=== PATIENT | male | born 1940 | race Caucasian/White ===

== ENCOUNTER → 2017-06-16 16:46 | Outpatient (CLI) | payer MEDICARE, OTHER ==
[2016-07-02 13:24] VITALS: BMI 34.9
[~2017-06-16 16:46] MED LIST: ALEVE220 MG PO; ANTIVERT25 MG PO; BAYER CHEWABLE81 MG PO; BRILINTA90 MG PO; COLACE100 MG PO; COREG6.25 MG PO; COZAAR50 MG PO; DHEA25 M1 PO; FERREX 150 PLUS1 CAP PO; FERROUS SULFAT325 MG PO; FLOMAX0.4 MG PO; HYDROCODON-ACE1 EAC7 PO; K-DUR20 MEQ PO; LASIX40 MG PO; LISINOPRIL10 MG PO; MAXALT10 MG PO; MIRALAX17 GM PO; PLAVIX75 MG PO; PRAVACHOL20 MG PO; PRAVACHOL40 MG PO; PRINIVIL20 MG PO; PROTONIX20 MG PO; PROTONIX40 MG PO; ROBAXIN500 MG PO; ZOFRAN4 MG PO; [UNRECOGNIZED DRUG - REMARK] PO
[2017-06-16 17:11] LABS: BASOPHILS 0.6 % (0-2); EOSINOPHILS 2.8 % (0-7); HEMATOCRIT 34.4 % (42.0-54.0); HEMOGLOBIN 10.1 g/dL (13.5-17.5); IMMATURE GRANULOCYTES 0.2 % (0-5); MCHC 29.4 g/dL (31.0-37.0); MCV 67.5 fL (80.0-100.0); MEAN PLATELET VOLUME 10.2 fL (7.4-10.4); MONOCYTES 10.9 % (2-11); NEUTROPHILS 55.5 % (40-80); PLATELET COUNT 242 10x3/uL (130-400); RDW 19.7 % (11.5-14.5); WBC 5.4 10x3/uL (4.8-10.8)
[2017-06-16 17:15] LABS: MCH 19.8 pg (26.0-34.0)
[2017-06-16 17:21] LABS: CALC OSMOLALITY 284 mosm/kg (275-300); CALCIUM 8.9 mg/dL (8.5-10.1); CARBON DIOXIDE 25.6 mmol/L (21.0-32.0); CHLORIDE - SERUM 105 mmol/L (98-107); GLUCOSE 93 mg/dL (74-106); POTASSIUM - SERUM 4.8 mmol/L (3.5-5.1); SODIUM 140 mmol/L (136-145); UREA NITROGEN 30 mg/dL (7-18); eGFR NON AFRICAN AMERICAN 77 mL/min (90-120)
== END | disposition home or self-care (01) ==
LOC: D.LABREF 16:46
PROVIDERS: Internal Medicine Cardiovascular Disease
DX: I10 Essential (primary) hypertension (principal)

== ENCOUNTER 2017-10-26 11:42 | Outpatient (CLI) | payer MEDICARE, OTHER ==
[~2017-10-26] VITALS: Ht 180.3 cm; Wt 111.4 kg
--- NOTE | ~2017-10-26 | HEMODYNAMI ---
PATIENT:JAQUELINE BANUELOS MEDICAL RECORD: [id number] : 44 LOCATION:[facility] ADMISSION DATE: 10/26/17 Generatedon:10/26/201714:36 Patient name: JAQUELINE BANUELOS Patient #: [id number] SSN: [id number] : 1940 Date of study: 10/26/2017 Page: Of Hemodynamic Procedure Report Patient Data Patient Demographics Procedure consent was obtained First Name: JAQUELINE Gender: Male Last Name: VIN : 1940 Patient #: [id number] Age: 77 year(s) Race: SSN: [id number] Additional ID: [id number] Contact details [address]: [address] [place] [address] State: [place] City: [place] Zip code: [address] Past Medical History Allergies: No known allergies Admission Admission Data Admission Date: 10/26/2017 Admission Time: 11:42 Admit Source: Other Lab Results Lab Result Date: 10/26/2017 Lab Result Time: 0:00 Biochemistry Name Units Result Min Max BUN mg/dl 23 --(----)-* 7 18 Creatinine mg/dl 1.2 --(---*)-- 0.6 1.3 CBC Name Units Result Min Max Hematocrit % 32.9 *-(----)-- 42 54 Hemoglobin g/dl 9.4 *-(----)-- 13.5 17.5 Procedure Procedure Types Cath Procedure Diagnostic Procedure LHC Coronaries w/Grafts Aortic Root Angiography Peripheral Cath Diagnostic Procedure Abd/Extremity Aortagram Procedure Description Procedure Date Procedure Date: 10/26/2017 Procedure Start Time: 14:06 Procedure End Time: 14:35 Procedure Staff Name Function Jassi Pederson MD Performing Physician Jonha Mckeon RN Nurse Michelle Flores RT Scrub Len Kapoor RT Monitor Julius Bauer RT Monitor Procedure Data Cath Procedure Fluoroscopy Diagnostic fluoroscopy Total fluoroscopy Time: 9.5 time: 9.5 min min Diagnostic fluoroscopy Total fluoroscopy dose: 932 dose: 932 mGy mGy Contrast Material Contrast Material Type Amount (ml) Isovue 300 100 Entry Location Entry Primary Successful Side Size Upsize Upsize Entry Closure Succes sful Closure Location (Fr) 1 (Fr) 2 (Fr) Remarks Device Remarks Femoral Left 5 Fr Exoseal artery Estimated blood loss: 10 ml Diagnostic catheters Device Type Used For End Catheter Placement MULTIPACK JL 4.0 5Fr Procedure catheter DIAGNOSTIC AR 1 MOD 5Fr Procedure catheter ([id number]) DIAGNOSTIC IM 5Fr Procedure catheter ([id number]) MULTIPACK Pigtail 5 Fr Procedure catheter Procedure Complications No complications Procedure Medications Medication Administration Route Dosage Oxygen NC 2 l/min Lidocaine 2% added to field 20 Heparin Flush Bag added to field 2 bags (1000units/500ml NS) 0.9% NaCl I.V. 100 ml/hr Versed I.V. 2 mg Fentanyl I.V. 100 mcg Versed I.V. 1 mg Fentanyl I.V. 50 mcg Versed I.V. 1 mg Fentanyl I.V. 50 mcg Versed I.V. 1 mg Versed I.V. 1 mg Hemodynamics Rest HGB: 9.4 (g/dl) Heart Rate: 82 (bpm) Snapshots Pre Cath Intra NCS Post Cath Vital Signs Time Heart Resp SPO2 etCO2 NIBP (mmHg) Rhythm Pain Sedation Rate (ipm) (%) (mmHg) Status Level (bpm) 13:49:29 79 21 98 0 139/74(101) NSR 0 (11) 10(A) , No pain 13:54:20 77 21 97 0 140/73(103) NSR 0 (11) 10(A) , No pain 13:59:03 78 20 99 32.9 131/77(96) NSR 0 (11) 10(A) , No pain 14:03:47 82 25 99 32.9 128/75(95) NSR 0 (11) 10(A) , No pain 14:08:30 91 14 94 10.4 129/78(108) NSR 0 (11) 10(A) , No pain 14:13:11 89 12 93 0 107/70(97) NSR 0 (11) 9(A) , No pain 14:17:51 96 14 94 29.9 123/73(104) NSR 0 (11) 9(A) , No pain 14:22:36 87 15 95 0 107/62(80) NSR 0 (11) 9(A) , No pain 14:27:19 92 14 94 28.4 122/61(98) NSR 0 (11) 10(A) , No pain 14:32:03 95 15 97 0 132/74(107) NSR 0 (11) 10(A) , No pain Medications Time Medication Route Dose Verified Delivered Reason Notes Effe ctiveness by by 14:03:01 Oxygen NC 2 Jassi Buffie used for l/min Bg Mckeon RN procedure 14:03:15 Lidocaine 2% added 20ml Jassi Jassi for local to vial Bg Pederson MD anesthetic field 14:03:22 Heparin Flush added 2 Jassi Jassi used for Bag to bags Bg Pederson MD procedure (1000units/500ml field NS) 14:03:40 0.9% NaCl I.V. 100 Jassi Buffie Per ml/hr Bg Mckeon RN physician 14:04:05 Fentanyl I.V. 100 Jassi Buffie for mcg Bg Mckeon RN sedation 14:04:58 Versed I.V. 2 mg Jassi Buffie for Bg Mckeon RN sedation 14:08:58 Versed I.V. 1 mg Jassi Buffie for Bg Mckeon RN sedation 14:09:03 Fentanyl I.V. 50 Jassi Buffie for mcg Bg Mckeon RN sedation 14:13:50 Versed I.V. 1 mg Jassi Buffie for Bg Mckeon RN sedation 14:13:54 Fentanyl I.V. 50 Jassi Buffie for mcg Bg Mckeon RN sedation 14:17:13 Versed I.V. 1 mg Jassi Buffie for Bg Mckeon RN sedation 14:29:52 Versed I.V. 1 mg Jassi Buffie for Bg Mckeon RN sedation Procedure Log Time Note 13:19:51 Informed consent obtained and on chart 13:19:54 Admit Source: Other 13:20:07 Diagnostic Cath status Elective 13:20:09 Time tracking: Regular hours 13:20:13 Plan of Care:Hemodynamics will remain stable., Cardiac rhythm will remain stable., Comfort level will be maintained., Respiratory function will remain adequate., Patient/ family verbilizes understanding of procedure., Procedure tolerated without complication., Recovers from procedure without complications.. 13:21:51 H&P Date Dictated: 10/20/2017 Within 30 days and on chart., H&P Addendum completed by physician on day of procedure. (MUST COMPLETE FOR ALL OUTPATIENTS). 13:48:26 Patient received from Pre/Post Procedure Room to CCL 1 Alert and oriented. Tansferred to table in Supine position. 13:48:28 Warm blankets applied, and norah hugger turned on for patient comfort. 13:48:29 Correct patient and procedure confirmed by team. 13:48:30 ECG and BP/O2 sat monitors applied to patient. 13:48:31 Vital chart was started 13:48:32 Baseline sample Acquired. 13:48:35 Rhythm: sinus rhythm 13:48:38 Full Disclosure recording started 13:48:40 Pre-procedure instructions explained to patient. 13:48:40 Pre-op teaching completed and patient verbalized understanding. 13:48:42 Family in waiting room. 13:48:46 Patient NPO since Breakfast. 13:48:53 Patient allergic to No known allergies 13:48:57 Is the patient allergic to Iodine/contrast media? No. 13:48:59 Is patient on blood thinner?No 13:49:02 Patient diabetic? No. 13:49:05 ----Pre-sedation anethsthesia assessment.---- 13:49:08 Previous problem with sedation/anesthesia? No ? 13:49:17 Snore? Yes 13:49:19 Sleep apnea? Yes 13:49:20 Deviated septum? No 13:49:21 Opens mouth fully? Yes 13:49:23 Sticks out tongue? Yes 13:49:26 Airway obstruction? No ? 13:49:35 Dentures? Yes IN TIGHT 13:49:52 Pre procedure: left dorsailis pedis pulse Doppler 13:50:00 Patient pain scale 0/10 ?. 13:50:15 IV patent on arrival in left hand with 0.9% NaCl at [facility]. 13:59:37 Lab Result : BUN 23 mg/dl 13:59:37 Lab Result : Creatinine 1.2 mg/dl 13:59:37 Lab Result : Hemoglobin 9.4 g/dl 13:59:37 Lab Result : Hematocrit 32.9 % 13:59:42 Lab results completed and on chart. 13:59:49 Left groin area was prepped with chlora-prep and draped in sterile fashion 13:59:52 Alarms reviewed by R. N. 13:59:53 Sharps counted by scrub and verified by R.N. 14:01:03 Physician arrived 14:01:03 --------ALL STOP TIME OUT------ 14:01:05 Final Timeout: patient, procedure, and site verified with staff and physician. All members of the team are in agreement. 14:01:11 Left groin site verified by team. 14:01:15 Physical assessment completed. ASA score P 2 - A patient with mild systemic disease as per Jassi Pederson MD. 14:01:20 Sedation plan: IV Moderate Sedation Medication:Versed, Fentanyl 14::58 Use device set Femoral Dx 14:01:59 ACIST Syringe (23902) opened to sterile field. 14:02:01 Bag Decanter (2002S) opened to sterile field. 14:02:05 Medline Cath Pack ([id number]) opened to sterile field. 14:02:10 SHEATH 5FR Grethel (AUD729) opened to sterile field. 14:02:11 DIAGNOSTIC WIRE .035 260cm J wire (998347) opened to sterile field. 14:02:13 ACIST Hand Control (53322) opened to sterile field. 14:02:14 ACIST Manifold (08861) opened to sterile field. 14:02:20 DIAGNOSTIC Multipack 5Fr catheter set ([id number]) opened to sterile field. 14:03:01 Oxygen 2 l/min NC was administered by Jonah Mckeon RN; used for procedure; 14:03:15 Lidocaine 2% 20ml vial added to field was administered by Jassi Pederson MD; for local anesthetic; 14:03:22 Heparin Flush Bag (1000units/500ml NS) 2 bags added to field was administered by Jassi Pederson MD; used for procedure; 14:03:40 0.9% NaCl 100 ml/hr I.V. was administered by Jonah Mckeon RN; Per physician; 14:04:05 Fentanyl 100 mcg I.V. was administered by Jonah Mckeon RN; for sedation; ::58 Versed 2 mg I.V. was administered by Jonah Mckeon RN; for sedation; 14:05:58 Procedure started. 14:06:05 Local anesthetic to left femerol artery with Lidocaine 2% by Jassi Pederson MD.INITIAL ACCESS ONLY 14:08:58 Versed 1 mg I.V. was administered by Jonah Mckeon RN; for sedation; 14:09:03 Fentanyl 50 mcg I.V. was administered by Jonah Mckeon RN; for sedation; 14:13:50 Versed 1 mg I.V. was administered by Jonah Mckeon RN; for sedation; 14:13:54 Fentanyl 50 mcg I.V. was administered by Jonah Mckeon RN; for sedation; 14:15:05 A 5 Fr sheath was inserted into the Left Femoral artery 14:16:49 WHOLEY 300cm 0.035 wire ([id number]) opened to sterile field. 14:17:09 A MULTIPACK JL 4.0 5Fr catheter was advanced over the wire and used for Procedure. 14:17:13 Versed 1 mg I.V. was administered by Joanh Mckeon RN; for sedation; 14:18:31 LCA angiography performed. 14:18:58 Catheter removed. 14:19:21 A DIAGNOSTIC AR 1 MOD 5Fr catheter ([id number]) was advanced over the wire and used for Procedure. 14:20:19 SVG to RCA angiography performed. 14:21:22 SVG to OM angiography performed. 14:21:34 Catheter removed. 14:22:12 A DIAGNOSTIC IM 5Fr catheter ([id number]) was advanced over the wire and used for Procedure. 14:23:55 CABALLERO to LAD angiography performed. 14:24:25 Catheter removed. 14:24:36 A MULTIPACK Pigtail 5 Fr catheter was advanced over the wire and used for Procedure. 14:25:21 Joselito Mcnair RT(R) was relieved by Julius Bauer RT(R) as monitoring person 14:26:31 Aortic Root visualized 14:26:36 Injector settings: Ml/sec: 15, Volume: 30, 14:27:54 Abdominal angiogram w/ runoff was performed. 14:28:13 Injector settings: Ml/sec: 10, Volume: 20, 14:28:16 Catheter removed. 14:28:36 EXOSEAL 5Fr (EX500) opened to sterile field. 14:28:38 PERCUTANEOUS ENTRY 19GA needle opened to sterile field. 14:28:48 Sheath removed intact; hemostasis achieved with Exoseal to the Left Femoral artery. 14:28:51 Procedure ended.(Physican Out) 14:29:02 Fluoroscopy time 09.50 minutes. 14:29:10 Flurop Dose total: 932 14:29:10 Fluoroscopy dose: 932 mGy 14:29:14 Contrast amount:Isovue 300 100ml. 14:29:52 Versed 1 mg I.V. was administered by Jonah Mckeon RN; for sedation; 14:30:50 Insertion/operative site no bleeding no hematoma. 14:30:54 Post-op/insertion site Left Femoral artery dressed using a 4 x 4 and Tegaderm. 14:30:55 Post Procedure Pulses reassessed and unchanged 14:30:57 Post-procedure physical assessment completed. ASA score P 1 - A normal healthy patient as per Jassi Pederson MD. 14:31:04 Post procedure rhythm: sinus rhythm 14:31:07 Estimated blood loss: 10 ml 14:31:12 Post procedure instruction explained to patient.Patient verbalizes understanding. 14:31:12 Patient needs reinforcement of post procedure teaching. 14:32:25 Procedure type changed to Cath procedure, Diagnostic procedure, LHC, Coronaries w/Grafts, Aortic Root Angiography, Peripheral Cath Diagnostic Procedure, Abd/Extremity, Aortagram 14:33:04 Procedure and supply charges have been captured, reviewed, submitted and are correct. 14:33:08 Procedure Complication : No complications 14:33:10 Vital chart was stopped 14:33:11 See physician's report for complete and final results. 14:33:14 Report given to Pre/Post Procedure Room. 14:33:16 Patient transfered to Pre/Post Procedure Room with Stretcher. 14:35:34 Procedure ended. 14:35:34 Full Disclosure recording stopped 14:35:41 End room use (Document Last) Device Usage Item Name Manufacture Quantity Catalog Hospital Part Current Minimal Lot# / Number Charge Number Stock Stock Serial# Code ACIST Acist 1 14796 378051 928961 060606 20 Syringe Langtice (98630) Systems Inc Bag Decanter Microtek 1 358992 12541 066102 5 () Medical Inc. Medline Cath Cardinal 1 [id number] 071014 47181 798452 5 Pack Health ([id number]) SHEATH 5FR Terumo 1 SYA671 501924 266071 918011 40 Grethel (PXT484) DIAGNOSTIC St Jerson 1 163331 194899 305966 665249 30 WIRE .035 260cm J wire (456607) ACIST Hand Acist 1 63107 362087 915014 015188 5 Control Medical (75600) Systems Inc ACIST Acist 1 31872 780438 532900 844407 5 Manifold Medical (93913) Systems Inc DIAGNOSTIC Cardinal 1 [id number] 586586 69846 096158 30 Multipack Health 5Fr catheter set (DZ5352) WHOLEY 300cm Medtronic 1 [id number] 237423 728204 351837 3 0.035 wire ([id number]) MULTIPACK JL Cardinal 1 004198 5 4.0 5Fr Health catheter DIAGNOSTIC Cardinal 1 [id number] 529317 681947 278971 15 AR 1 MOD 5Fr Health catheter ([id number]) DIAGNOSTIC Cardinal 1 [id number] 012727 299330 165838 5 IM 5Fr Health catheter ([id number]) MULTIPACK Cardinal 1 286424 5 Pigtail 5 Fr Health catheter EXOSEAL 5Fr Cardinal 1 EX500 452423 546059 130675 10 (EX500) Health PERCUTANEOUS Cook Medical 1 [id number] 135927 737970 5 ENTRY 19GA needle Signature Audit Comins Stage Time Signature Unsigned Intra-Procedure 10/26/2017 Julius Bauer 2:35:58 PM RT(R) Signatures Monitor : Len Kapoor RT Signature : Date : Time : Monitor : Julius Bauer RT Signature : Date : Time : [address] [place] [address]
[2017-10-26] MEDS ORDERED: OMEPRAZOLE40 MG PO (11:55)
[2017-10-26] MEDS ORDERED: ZOFRAN4 MG PO (11:56)
[2017-10-26 12:08] VITALS: BP 124/70; Ht 180.3 cm; Wt 111.4 kg
[2017-10-26 12:26] LABS: BASOPHILS 0.3 % (0-2); HEMATOCRIT 32.9 % (42.0-54.0); HEMOGLOBIN 9.4 g/dL (13.5-17.5); IMMATURE GRANULOCYTES 0.2 % (0-5); LYMPHOCYTES 31.1 % (15-50); MCH 18.7 pg (26.0-34.0); MCHC 28.6 g/dL (31.0-37.0); MCV 65.4 fL (80.0-100.0); MEAN PLATELET VOLUME 9.4 fL (7.4-10.4); MONOCYTES 7.5 % (2-11); NEUTROPHILS 57.9 % (40-80); PLATELET COUNT 246 10x3/uL (130-400); RBC 5.03 10x6/uL (4.20-6.10); RDW 20.6 % (11.5-14.5); WBC 6.6 10x3/uL (4.8-10.8)
[2017-10-26 12:32] LABS: ANION GAP 13.5 mmol/L (8-16); CARBON DIOXIDE 27.4 mmol/L (21.0-32.0); CREATININE - SERUM 1.2 mg/dL (0.6-1.3); POTASSIUM - SERUM 4.9 mmol/L (3.5-5.1)
== END 2017-10-26 16:30 | disposition home or self-care (01) ==
LOC: D.CATH 11:42
PROVIDERS: Internal Medicine Cardiovascular Disease
DX: I25.119 Atherosclerotic heart disease of native coronary artery with unspecified angina pectoris (principal); Z95.1 Presence of aortocoronary bypass graft; I71.4 Abdominal aortic aneurysm, without rupture; Z01.812 Encounter for preprocedural laboratory examination

== ENCOUNTER → 2017-11-11 07:25 | Outpatient (CLI) | payer MEDICARE, OTHER ==
[2017-10-26 12:08] VITALS: BMI 34.2
[~2017-11-11 07:25] MED LIST changes: +OMEPRAZOLE40 MG PO
== END | disposition home or self-care (01) ==
LOC: D.RAD 07:25
DX: K31.89 Other diseases of stomach and duodenum (principal)

== ENCOUNTER → 2017-11-19 08:57 | Outpatient (CLI) | payer MEDICARE, OTHER ==
[2017-10-26 12:08] VITALS: BMI 34.2
[2017-11-19 09:24] LABS: BASOPHILS 0.3 % (0-2); EOSINOPHILS 3.6 % (0-7); HEMATOCRIT 32.5 % (42.0-54.0); HEMOGLOBIN 9.1 g/dL (13.5-17.5); IMMATURE GRANULOCYTES 0.2 % (0-5); LYMPHOCYTES 25.4 % (15-50); MCV 66.7 fL (80.0-100.0); MEAN PLATELET VOLUME 8.7 fL (7.4-10.4); MONOCYTES 6.4 % (2-11); NEUTROPHILS 64.1 % (40-80); RBC 4.87 10x6/uL (4.20-6.10); RDW 21.4 % (11.5-14.5); WBC 6.1 10x3/uL (4.8-10.8)
[2017-11-19 09:25] LABS: MCH 18.7 pg (26.0-34.0); PLATELET COUNT 190 10x3/uL (130-400)
[2017-11-23 14:17] LABS: INTRINSIC FACTOR ANTIBODY 0.9 AU/mL (0.0-1.1)
[2017-11-23 15:23] LABS: ANTIPARIETAL CELL ANTIBODY 61.2 Units (0.0-20.0)
== END | disposition home or self-care (01) ==
LOC: D.LAB 08:57
PROVIDERS: Internal Medicine Gastroenterology
DX: K21.9 Gastro-esophageal reflux disease without esophagitis (principal); R14.2 Eructation; K29.40 Chronic atrophic gastritis without bleeding

== ENCOUNTER → 2018-01-01 15:46 | Outpatient (CLI) | payer MEDICARE, OTHER ==
[2017-10-26 12:08] VITALS: BMI 34.2
== END | disposition home or self-care (01) ==
LOC: D.MRI 15:46
DX: R42 Dizziness and giddiness (principal)

== ENCOUNTER → 2018-01-06 07:20 | Outpatient (CLI) | payer MEDICARE, OTHER ==
[2017-10-26 12:08] VITALS: BMI 34.2
[2018-01-06 08:45] LABS: % SATURATION 5 % (15-55); IRON 20 ug/dl (35-150); TOTAL IRON BIND CAPACITY 371 ug/dl (260-445); UNSAT IRON BIND CAPACITY 351 ug/dl (150-375)
[2018-01-06 09:05] LABS: BASOPHILS 0.4 % (0-2); EOSINOPHILS 2.6 % (0-7); HEMATOCRIT 33.5 % (42.0-54.0); HEMOGLOBIN 9.6 g/dL (13.5-17.5); IMMATURE GRANULOCYTES 0.3 % (0-5); LYMPHOCYTES 26.2 % (15-50); MCH 19.3 pg (26.0-34.0); MCHC 28.7 g/dL (31.0-37.0); MCV 67.3 fL (80.0-100.0); MEAN PLATELET VOLUME 9.3 fL (7.4-10.4); MONOCYTES 9.1 % (2-11); NEUTROPHILS 61.4 % (40-80); PLATELET COUNT 210 10x3/uL (130-400); RBC 4.98 10x6/uL (4.20-6.10); RDW 21.7 % (11.5-14.5); WBC 6.9 10x3/uL (4.8-10.8)
== END | disposition home or self-care (01) ==
LOC: D.LAB 07:20
PROVIDERS: Internal Medicine Gastroenterology
DX: K29.40 Chronic atrophic gastritis without bleeding (principal); R14.2 Eructation; R53.83 Other fatigue; D64.9 Anemia, unspecified

== ENCOUNTER 2018-06-07 17:21 | Emergency (ER) | payer MEDICARE, OTHER ==
[~2018-06-07] VITALS: Ht 180.3 cm; Wt 113.6 kg
[2018-06-07 17:25] VITALS: Ht 180.3 cm; Wt 113.6 kg
[2018-06-07] MEDS ORDERED: CATAPRES0.1 MG PO (19:18)
[2018-06-07 20:03] VITALS: BP 133/78
== END 2018-06-07 20:03 | disposition home or self-care (01) ==
LOC: D.ER 17:21
DX: I10 Essential (primary) hypertension (principal); G40.909 Epilepsy, unspecified, not intractable, without status epilepticus; Z95.1 Presence of aortocoronary bypass graft

== ENCOUNTER → 2018-08-17 12:29 | Outpatient (CLI) | payer MEDICARE, OTHER ==
[2018-06-07 17:25] VITALS: BMI 34.9
[~2018-08-17 12:29] MED LIST changes: +CATAPRES0.1 MG PO; +HYDROCODON-ACE1 EA10 PO
== END | disposition home or self-care (01) ==
LOC: D.MRI 12:29
DX: M54.12 Radiculopathy, cervical region (principal); M25.512 Pain in left shoulder

== ENCOUNTER → 2018-08-20 13:28 | Outpatient (CLI) | payer MEDICARE, OTHER ==
[2018-06-07 17:25] VITALS: BMI 34.9
== END | disposition home or self-care (01) ==
LOC: D.MRI 13:28
DX: M25.512 Pain in left shoulder (principal)

== ENCOUNTER 2018-09-06 07:45 | Day surgery (SDC) | payer MEDICARE, OTHER ==
[~2018-09-06] VITALS: Ht 180.3 cm; Wt 106.6 kg
[~2018-09-06 07:45] MED LIST changes: -HYDROCODON-ACE1 EA10 PO
[2018-09-06 08:46] LABS: HEMATOCRIT 49.1 % (42.0-54.0); HEMOGLOBIN 16.4 g/dL (13.5-17.5); MCH 28.2 pg (26.0-34.0); MCHC 33.4 g/dL (31.0-37.0); MCV 84.5 fL (80.0-100.0); MEAN PLATELET VOLUME 10.2 fL (7.4-10.4); RBC 5.81 10x6/uL (4.20-6.10); RDW 13.6 % (11.5-14.5); WBC 8.3 10x3/uL (4.8-10.8)
[2018-09-06] MEDS ORDERED: FLOMAX0.4 MG PO (09:05)
[2018-09-06 09:40] VITALS: BP 146/84; Ht 180.3 cm; Wt 106.6 kg
[2018-09-06] MEDS ORDERED: HYDROCODON-ACE1 EA10 PO (12:06)
--- NOTE | 2018-09-20 09:18 | OP ---
PATIENT NAME: JAQUELINE BANUELOS MEDICAL RECORD: [id number] :42 LOCATION:[facility] ADMISSION DATE: SURGEON: JAQUELINE DARNELL MD DATE OF OPERATION: 09/06/2018 PREOPERATIVE DIAGNOSES: Rotator cuff tear of the left shoulder with impingement syndrome, acromioclavicular arthritis. POSTOPERATIVE DIAGNOSES: Rotator cuff tear of the left shoulder with impingement syndrome, acromioclavicular arthritis. PROCEDURE: 1. Arthroscopic repair of the rotator cuff, left shoulder. 2. Arthroscopic distal clavicle excision done through separate incision. 3. Arthroscopic subacromial decompression, acromioplasty, and bursectomy. SURGEON: Jaqueline Darnell MD ANESTHESIA: General. INTRAOPERATIVE COMPLICATIONS: None. SUMMARY OF PATHOLOGIC FINDINGS: Consistent with the preoperative MRI and physical examination, the patient had a small rotator cuff tear in the supraspinatus insertion as well as a downward sloping acromion with excoriation of the coracoacromial ligament. The patient also had grade IV chondromalacia of the distal clavicle. Intraarticular component was essentially okay with only minimal biceps tendinitis. OPERATIVE SUMMARY IN DETAIL: After obtaining the appropriate preoperative orthopedic surgery consent as well as anesthetic consultation, evaluation and clearance, the patient was brought to the operating room and placed on the operating table in supine position. After general laryngeal mask airway was administered, the patient was placed in right lateral decubitus position. All pressure points were well padded to include down leg peroneal pad as well as axillary roll. The patient was held firmly to the operating table using the vacuum pack suction system. Left upper extremity and shoulder were then prepped and draped in routine sterile fashion. The arm was held in the Arthrex traction boom at 30 to forward flexion, 30 degrees of abduction, 10 pounds of traction laterally. Arthroscopy was established in the glenohumeral joint from the posterior portal. Anterior portal was established in the anterior safe interval. Diagnostic arthroscopy revealed the patient to have a small rotator cuff tear. Transrotator cuff portal was created for debridement of nonviable-appearing rotator cuff fibers and begin decortication of the supraspinatus tendinous footprint. At this point, attention was turned to the subacromial space. While on subacromial space, Arthrex tissue ablation system was utilized to denude the undersurface of the acromion of all soft tissue elements and release the coracoacromial ligament. A 5-0 barrel bur was then used to perform acromioplasty at the level of acromioclavicular joint. Then, under separate arthroscopic portal, under direct arthroscopic visualization, distal clavicle was excised for 1 cm. Lastly, attention was then turned to the rotator cuff. Further tuberosity decortication was carried out. A mattress FiberTape was then placed. It was anchored laterally with a single 4.75 SwiveLock from Arthrex. OPERATIVE REPORT [id number] JAQUELINE BANUELOS Having completed this, arthroscopy portals were closed in routine interrupted fashion using 4-0 Prolene. Sterile dressings were applied. The patient was awakened and taken to the recovery room in stable condition. All final needle and sponge counts were correct. TRANSINT:[id number] Voice Confirmation ID: [id number] DOCUMENT ID: [id number] JAQUELINE DARNELL MD at 0918 CC: [id number] DICTATION DATE: 09/17/18945 CAPSULE MACHINE OPERATOR: 09/17/18 1126 [facility] 09/06/18 [address] [place] [address]
== END 2018-09-06 15:30 | disposition home or self-care (01) ==
LOC: D.OPS 07:45 → D.PAN 11:30 → D.OPS 13:55
PROVIDERS: Anesthesiology
DX: M75.102 Unspecified rotator cuff tear or rupture of left shoulder, not specified as traumatic (principal); M75.42 Impingement syndrome of left shoulder; M54.12 Radiculopathy, cervical region; M19.012 Primary osteoarthritis, left shoulder

== ENCOUNTER → 2018-11-19 10:48 | Outpatient (CLI) | payer MEDICARE, OTHER ==
[2018-09-06 09:40] VITALS: BMI 32.8
[~2018-11-19 10:48] MED LIST changes: +HYDROCODON-ACE1 EA10 PO
== END | disposition home or self-care (01) ==
LOC: D.MRI 10:48
PROVIDERS: ATTEND Orthopaedic Surgery
DX: M25.511 Pain in right shoulder (principal)

== ENCOUNTER → 2019-03-21 07:04 | Outpatient (CLI) | payer MEDICARE, OTHER ==
[2018-09-06 09:40] VITALS: BMI 32.8
== END | disposition home or self-care (01) ==
LOC: D.MRI 07:04
PROVIDERS: ATTEND Orthopaedic Surgery
DX: M75.122 Complete rotator cuff tear or rupture of left shoulder, not specified as traumatic (principal)

== ENCOUNTER → 2019-03-22 14:01 | Outpatient (CLI) | payer MEDICARE, OTHER ==
[2018-09-06 09:40] VITALS: BMI 32.8
== END | disposition home or self-care (01) ==
LOC: D.MRI 14:01
PROVIDERS: ATTEND Orthopaedic Surgery
DX: M75.122 Complete rotator cuff tear or rupture of left shoulder, not specified as traumatic (principal)

== ENCOUNTER → 2019-07-13 12:53 | Outpatient (CLI) | payer MEDICARE, OTHER ==
[2018-09-06 09:40] VITALS: BMI 32.8
== END | disposition home or self-care (01) ==
LOC: D.HCCECHO 12:53
PROVIDERS: ATTEND Internal Medicine Cardiovascular Disease
DX: I25.10 Atherosclerotic heart disease of native coronary artery without angina pectoris (principal)

== ENCOUNTER 2020-03-05 12:44 | Observation (INO) | payer MEDICARE, OTHER ==
[2020-03-05] VITALS (8 sets, daily range): BP systolic 94–164; BP diastolic 42–88; Ht 180.3 cm; Wt 101.7 kg
[~2020-03-05] VITALS: Ht 180.3 cm; Wt 101.7 kg
[2020-03-05 13:57] LABS: BASOPHILS 0.3 % (0-2); HEMOGLOBIN 13.9 g/dL (13.5-17.5); IMMATURE GRANULOCYTES 0.3 % (0-5); LYMPHOCYTES 29.3 % (15-50); MCH 26.2 pg (26.0-34.0); MCHC 31.6 g/dL (31.0-37.0); MCV 82.9 fL (80.0-100.0); MEAN PLATELET VOLUME 9.5 fL (7.4-10.4); MONOCYTES 10.1 % (2-11); PLATELET COUNT 168 10x3/uL (130-400); RBC 5.31 10x6/uL (4.20-6.10); WBC 5.9 10x3/uL (4.8-10.8)
[2020-03-05 14:05] LABS: APTT 25.5 SECONDS (22.8-39.4); INR 0.88 (0.85-1.17)
[2020-03-05 14:12] LABS: CALC OSMOLALITY 279 mosm/kg (275-300); CALCIUM 9.5 mg/dL (8.5-10.1); CHLORIDE - SERUM 103 mmol/L (98-107); CREATININE - SERUM 1.1 mg/dL (0.6-1.3); GLUCOSE 95 mg/dL (74-106); POTASSIUM - SERUM 4.5 mmol/L (3.5-5.1); SODIUM 138 mmol/L (136-145); UREA NITROGEN 23 mg/dL (7-18); eGFR NON AFRICAN AMERICAN 69 mL/min (90-120)
[2020-03-05 14:32] LABS: ALBUMIN 3.5 g/dL (3.4-5.0); ALKALINE PHOSPHATASE 68 U/L (30-120); ALT (SGPT) 29 U/L (10-68); AMYLASE - SERUM 41 U/L (25-115); BILIRUBIN - TOTAL 0.32 mg/dL (0.2-1.3); CKMB 1.8 U/L (0.0-3.6); CREATINE KINASE 67 UL (21-232); LIPASE 137 U/L (73-393); MAGNESIUM - SERUM 1.7 mg/dL (1.8-2.4); PROTEIN - SERUM 6.8 g/dL (6.4-8.2); TROPONIN-I < 0.017 ng/mL (0.000-0.060)
--- NOTE | 2020-03-05 14:56 | NUR ---
BP AFTER NITRO 94/42 (59) DR PRABHAKAR AWARE
--- NOTE | 2020-03-05 16:04 | NUR ---
C/O 10/ INTER ABD PAIN. DR PRABHAKAR NOTIFIED
[2020-03-05 16:49] LABS: BILIRUBIN NEGATIVE (NEGATIVE); GLUCOSE NEGATIVE (NEGATIVE); KETONE NEGATIVE (NEGATIVE); NITRITE NEGATIVE (NEGATIVE); UROBILINOGEN NORMAL (NORMAL)
--- NOTE | 2020-03-05 17:40 | NUR ---
REPORT TO SAIGE ALICEA
--- NOTE | 2020-03-05 17:50 | NUR ---
ADIMT TO ROOM 32038, CONDITION STABLE
--- NOTE | 2020-03-05 17:53 | NUR ---
RECEIVED PT TO ROOM 2115 VIA W/C AAOX4 RESP UNLABORED SKIN W/D COLOR WNL STATES CHEST PAIN 10/10 AT THIS TIME TELEMETRY APPLIED
--- NOTE | 2020-03-05 20:20 | NUR ---
BEDSIDE REPORT GIVEN AND ROUNDS COMPLETED. PATIENT IS ALERT AND ORIENTED, RESTING COMFORTABLY IN BED. RESPIRATIONS ARE EVEN AND UNLABORED. NO S/S OF DISTRESS. PATIENT HAS C/O PAIN. WILL GIVE DILAUDID. CALL LIGHT WITHIN REACH. WILL CPOC.
[2020-03-05 21:20] LABS: CKMB 1.7 U/L (0.0-3.6); CREATINE KINASE 66 UL (21-232); TROPONIN-I < 0.017 ng/mL (0.000-0.060)
[2020-03-06 00:59] VITALS: BP 103/66
[2020-03-06 02:04] LABS: BASOPHILS 0.6 % (0-2); EOSINOPHILS 2.7 % (0-7); HEMOGLOBIN 13.5 g/dL (13.5-17.5); IMMATURE GRANULOCYTES 0.3 % (0-5); LYMPHOCYTES 28.6 % (15-50); MCH 25.7 pg (26.0-34.0); MCHC 30.7 g/dL (31.0-37.0); MCV 83.8 fL (80.0-100.0); MEAN PLATELET VOLUME 9.6 fL (7.4-10.4); MONOCYTES 5.8 % (2-11); PLATELET COUNT 189 10x3/uL (130-400); RBC 5.25 10x6/uL (4.20-6.10); RDW 15.8 % (11.5-14.5); WBC 6.2 10x3/uL (4.8-10.8)
[2020-03-06 02:39] LABS: ALBUMIN 3.7 g/dL (3.4-5.0); ALKALINE PHOSPHATASE 81 U/L (30-120); ALT (SGPT) 66 U/L (10-68); CALC OSMOLALITY 276 mosm/kg (275-300); CHLORIDE - SERUM 103 mmol/L (98-107); CKMB 1.8 U/L (0.0-3.6); CREATINE KINASE 80 UL (21-232); CREATININE - SERUM 1.3 mg/dL (0.6-1.3); GLUCOSE 97 mg/dL (74-106); LIPASE 135 U/L (73-393); MAGNESIUM - SERUM 1.7 mg/dL (1.8-2.4); POTASSIUM - SERUM 4.9 mmol/L (3.5-5.1); PROTEIN - SERUM 6.5 g/dL (6.4-8.2); SODIUM 137 mmol/L (136-145); TROPONIN-I < 0.017 ng/mL (0.000-0.060); UREA NITROGEN 21 mg/dL (7-18); eGFR NON AFRICAN AMERICAN 57 mL/min (90-120)
[2020-03-06 05:11] VITALS: BP 134/78
[2020-03-06 08:00] VITALS: BP 136/79
[2020-03-06 08:19] LABS: CKMB 1.9 U/L (0.0-3.6); CREATINE KINASE 74 UL (21-232)
[2020-03-06 08:22] LABS: TROPONIN-I < 0.017 ng/mL (0.000-0.060)
[2020-03-06 11:00] VITALS: BP 132/77
--- NOTE | 2020-03-06 13:14 | NUR ---
IV AND TELEMETRY DCD. DC PLANS GIVEN. UNDERSTANDING VOICED. ESCORTED TO CAR BY W/C.
== END 2020-03-06 13:14 | disposition home or self-care (01) ==
LOC: D.ER 12:44 → D.M2 17:15 → OBSVTIME 17:15 → D.M2 18:09
PROVIDERS: Family Medicine; ADMIT Family Medicine; ATTEND Family Medicine
DX: I25.110 Atherosclerotic heart disease of native coronary artery with unstable angina pectoris (principal); I10 Essential (primary) hypertension; K21.9 Gastro-esophageal reflux disease without esophagitis; E83.42 Hypomagnesemia; G40.909 Epilepsy, unspecified, not intractable, without status epilepticus; N40.0 Benign prostatic hyperplasia without lower urinary tract symptoms; N28.1 Cyst of kidney, acquired; I71.4 Abdominal aortic aneurysm, without rupture; I35.0 Nonrheumatic aortic (valve) stenosis

== ENCOUNTER 2020-04-02 14:43 | Emergency (ER) | payer MEDICARE, OTHER ==
[~2020-04-02] VITALS: Ht 180.3 cm; Wt 109.1 kg
[2020-04-02 14:55] VITALS: Ht 180.3 cm; Wt 109.1 kg
[2020-04-02 15:32] LABS: BASOPHILS 0.4 % (0-2); EOSINOPHILS 3.1 % (0-7); HEMATOCRIT 37.8 % (42.0-54.0); HEMOGLOBIN 11.7 g/dL (13.5-17.5); IMMATURE GRANULOCYTES 0.6 % (0-5); LYMPHOCYTES 27.4 % (15-50); MCH 25.7 pg (26.0-34.0); MCV 83.1 fL (80.0-100.0); MEAN PLATELET VOLUME 9.3 fL (7.4-10.4); MONOCYTES 9.5 % (2-11); PLATELET COUNT 153 10x3/uL (130-400); RBC 4.55 10x6/uL (4.20-6.10); RDW 16.1 % (11.5-14.5); WBC 7.2 10x3/uL (4.8-10.8)
[2020-04-02 15:52] LABS: ANION GAP 8.2 mmol/L (8-16); CALCIUM 9.1 mg/dL (8.5-10.1); CARBON DIOXIDE 30.8 mmol/L (21.0-32.0); CREATININE - SERUM 1.4 mg/dL (0.6-1.3)
[2020-04-02 16:01] LABS: ALBUMIN 3.4 g/dL (3.4-5.0); BILIRUBIN - TOTAL 0.21 mg/dL (0.2-1.3); PROTEIN - SERUM 6.5 g/dL (6.4-8.2); TROPONIN-I 0.02 ng/mL (0.000-0.060)
[2020-04-02] MEDS ORDERED: NEURONTIN 300300 MG PO (20:08)
[2020-04-02 20:53] LABS: BILIRUBIN NEGATIVE (NEGATIVE); KETONE NEGATIVE (NEGATIVE); NITRITE NEGATIVE (NEGATIVE); UROBILINOGEN NORMAL (NORMAL)
[2020-04-02 20:54] LABS: RED CELLS - URINE OCC /hpf (0-5); WHITE CELLS - URINE 0-5 /hpf (0-5)
[2020-04-02 20:56] VITALS: BP 125/76
== END 2020-04-02 20:57 | disposition home or self-care (01) ==
LOC: D.ER 14:43
PROVIDERS: Emergency Medicine
DX: R06.6 Hiccough (principal); M62.838 Other muscle spasm; R10.12 Left upper quadrant pain; I10 Essential (primary) hypertension; I25.2 Old myocardial infarction; I25.10 Atherosclerotic heart disease of native coronary artery without angina pectoris; K21.9 Gastro-esophageal reflux disease without esophagitis

== ENCOUNTER → 2020-11-12 07:50 | Outpatient (CLI) | payer MEDICARE, OTHER ==
[2020-04-02 14:55] VITALS: BMI 33.5
[~2020-11-12 07:50] MED LIST changes: +NEURONTIN 300300 MG PO
== END | disposition home or self-care (01) ==
LOC: D.HCCARDIO 07:50 → D.HCCECHO 11:30
PROVIDERS: ATTEND Internal Medicine Cardiovascular Disease
DX: I25.10 Atherosclerotic heart disease of native coronary artery without angina pectoris (principal)

== ENCOUNTER 2020-11-22 07:01 | Day surgery (SDC) | payer MEDICARE, OTHER ==
[~2020-11-22] VITALS: Ht 180.3 cm; Wt 105.4 kg
--- NOTE | ~2020-11-22 | HEMODYNAMI ---
PATIENT:JAQUELINE BANUELOS MEDICAL RECORD: [id number] : 44 LOCATION:[facility] ADMISSION DATE: 11/22/20 Generatedon:19:23 Patient name: JAQUELINE BANUELOS Patient #: [id number] SSN: [id number] : 1940 Date of study: 11/22/2020 Page: Of Hemodynamic Procedure Report Patient Data Patient Demographics Procedure consent was obtained First Name: JAQUELINE Gender: Male Last Name: VIN : 1940 Patient #: [id number] Age: 80 year(s) Race: SSN: [id number] Additional ID: [id number] Contact details Address: [facility] [address] [facility] State: [place] City: [place] Zip code: [address] Past Medical History Allergies: No known allergies Admission Admission Data Admission Date: 11/22/2020 Admission Time: 7:01 Arrival Date: 11/22/2020 Arrival Time: 0:00 Height (in.): 70.87 BSA: 2.25 (m2) Height (cm.): 180 BMI: 32.76 (kg/m2) Weight (lbs.): 234 Weight (kg.): 106.14 Lab Results Lab Result Date: 11/22/2020 Lab Result Time: 0:00 Biochemistry Name Units Result Min Max BUN mg/dl 21 --(----)-* 7 18 Creatinine mg/dl 1.1 --(--*-)-- 0.6 1.3 eGFR ml/min 69 *-(----)-- 90 120 NONAFRICAN CBC Name Units Result Min Max Hematocrit % 36.1 *-(----)-- 42 54 Hemoglobin g/dl 10.9 *-(----)-- 13.5 17.5 Procedure Procedure Types Cath Procedure Diagnostic Procedure LHC Coronaries w/Grafts Aortic Root Angiography Sedation Charges Moderate Sedation 25-39 minutes Peripheral Cath Diagnostic Procedure Abd/Extremity Aortagram Procedure Description Procedure Date Procedure Date: 11/22/2020 Procedure Start Time: 8:48 Procedure End Time: 9:19 Procedure Staff Name Function Jassi Pederson MD Performing Physician Beatriz Ontiveros RT Monitor Jonah Mckeon RN Nurse Michelle Flores RT Scrub Lobo Allison RN Ham Pumper Procedure Data Cath Procedure Fluoroscopy Diagnostic fluoroscopy Total fluoroscopy Time: 9.4 time: 9.4 min min Diagnostic fluoroscopy Total fluoroscopy dose: 994 dose: 994 mGy mGy Contrast Material Contrast Material Type Amount (ml) Isovue 300 104 Entry Location Entry Primary Successful Side Size Upsize Upsize Entry Closure Hernandez ccessful Closure Location (Fr) 1 (Fr) 2 (Fr) Remarks Device Remarks Femoral Left 5 Fr Exoseal artery Femoral Left 5 Fr Manual vein Compression Estimated blood loss: 10 ml Diagnostic catheters Device Type Used For End Catheter Placement DIAGNOSTIC 3DRC 5Fr catheter ([id number]) DIAGNOSTIC JL 4.0 5Fr Procedure catheter ([id number]) DIAGNOSTIC AR1 MOD 5Fr Procedure catheter ([id number]) DIAGNOSTIC AR2 MOD 5 Fr Procedure catheter ([id number]) DIAGNOSTIC IMT 5Fr Procedure Catheter ([id number]) DIAGNOSTIC Pigtail 5Fr Ventriculography catheter ([id number]) Procedure Complications No complications Procedure Medications Medication Administration Route Dosage Phenergan 25 mg Oxygen etCO2 Nasal cannula 2 l/min Lidocaine 2% added to field 20 Heparin Flush Bag added to field 2 bags (1000units/500ml NS) 0.9% NaCl I.V. 100 ml/hr Versed I.V. 1 mg Fentanyl I.V. 50 mcg Versed I.V. 1 mg Fentanyl I.V. 50 mcg Fentanyl I.V. 50 mcg Versed I.V. 1 mg Versed I.V. 1 mg Fentanyl I.V. 50 mcg Hemodynamics Rest BSA: 2.25 (m2) HGB: 10.9 (g/dl) O2 Consumption: Estimated: 264.07 (ml/min) O2 Co nsumption indexed: Estimated:117.36 (ml/min/m) Heart Rate: 78 (bpm) Snapshots Pre Cath Intra NCS Post Cath Vital Signs Time Heart Resp SPO2 etCO2 NIBP (mmHg) Rhythm Pain Sedation Rate (ipm) (%) (mmHg) Status Level (bpm) 8:32:32 80 22 96 0 139/73(101) NSR 0 (11) 10(A) , No pain 8:36:50 83 21 98 30.9 140/84(103) NSR 0 (11) 10(A) , No pain 8:41:00 85 16 94 34 110/74(93) NSR 0 (11) 10(A) , No pain 8:45:06 80 12 93 0 103/64(89) NSR 0 (11) 10(A) , No pain 8:49:18 83 12 97 0 102/64(82) NSR 0 (11) 9(A) , No pain 8:53:26 86 12 97 15.1 114/76(104) NSR 0 (11) 9(A) , No pain 8:57:40 87 12 95 0 104/70(90) NSR 0 (11) 9(A) , No pain 9:01:52 91 12 97 0 97/63(83) NSR 0 (11) 10(A) , No pain 9:06:00 87 13 98 9 114/67(95) NSR 0 (11) 10(A) , No pain 9:10:11 95 14 99 28 128/75(90) NSR 0 (11) 10(A) , No pain 9:14:28 98 16 99 34 106/76(93) NSR 0 (11) 10(A) , No pain 9:17:09 96 19 99 24.9 115/75(94) NSR 0 (11) 10(A) , No pain Medications Time Medication Route Dose Verified Delivered Reason Notes Ef fectiveness by by 8:29:33 Phenergan IM to 25 mg Jassi Buffie for nausea pt is rt gm Bg Mckeon RN [facility] and has already been given zofran iv, pt states nausea for weeks. 8:30:37 Oxygen etCO2 2 Jassi Buffie used for Nasal l/min Bg Mckeon RN procedure cannula 8:30:48 Lidocaine 2% added 20ml Jassi Jassi for local to vial Bg Pederson MD anesthetic field 8:30:56 Heparin Flush added 2 Jassi Jassi used for Bag to bags Bg Pederson MD procedure (1000units/500ml field NS) 8:31:03 0.9% NaCl I.V. 100 Jassi Buffie Per ml/hr Bg Mckeon RN physician 8:46:19 Versed I.V. 1 mg Jassi Buffie for Bg Mckeon RN sedation 8:46:24 Fentanyl I.V. 50 Jassi Buffie for mcg Bg Mckeon RN sedation 8:49:35 Versed I.V. 1 mg Jassi Buffie for Bg Mckeon RN sedation 8:49:39 Fentanyl I.V. 50 Jassi Buffie for mcg Bg Mckeon RN sedation 8:51:44 Fentanyl I.V. 50 Jassi Buffie for mcg Bg Mckeon RN sedation 8:53:21 Versed I.V. 1 mg Jassi Buffie for Bg Mckeon RN sedation 8:53:26 Versed I.V. 1 mg Jassi Buffie for Bg Mckeon RN sedation 9:12:49 Fentanyl I.V. 50 Jassi Buffie for mcg Bg Mckeon RN sedation Procedure Log Time Note 8:09:20 Informed consent obtained and on chart 8:10:56 Procedure Status Elective Heart Cath (OP). 8:11:00 Time tracking: Regular hours (M-F 7:00 - 5:00) 8:11:03 Plan of Care:Hemodynamics will remain stable., Cardiac rhythm will remain stable., Comfort level will be maintained., Respiratory function will remain adequate., Patient/ family verbilizes understanding of procedure., Procedure tolerated without complication., Recovers from procedure without complications.. 8:15:19 H&P Date Dictated: 11/20/2020 Within 30 days and on chart., H&P Addendum completed by physician on day of procedure. (MUST COMPLETE FOR ALL OUTPATIENTS). 8:15:26 Patient allergic to No known allergies 8:16:31 Lobo Allison RN sent for patient. Start room use. 8:17:16 Lab Result : BUN 21 mg/dl 8:17:16 Lab Result : eGFR NONAFRICAN 69 ml/min 8:17:16 Lab Result : Creatinine 1.1 mg/dl 8:17:16 Lab Result : Hemoglobin 10.9 g/dl 8:17:16 Lab Result : Hematocrit 36.1 % 8:17:23 Lab results completed and on chart. 8:19:49 Patient Weight : 234 lbs 8:19:54 Patient Height : 70.87 inches 8:19:58 Arrival Date: 11/22/2020 12:00:00 AM 8:22:10 Patient received from Pre/Post Procedure Room to CCL 1 Alert and oriented. Tansferred to table in Supine position. 8:22:12 Warm blankets applied, and norah hugger turned on for patient comfort. 8:22:12 Correct patient and procedure confirmed by team. 8:22:12 ECG and BP/O2 sat monitors applied to patient. 8:29:33 Phenergan 25 mg IM to rt gm was administered by Jonah Mckeon RN; for nausea; pt is belching and has already been given zofran iv, pt states nausea for weeks. Verbal order read back and verified. 8:30:37 Oxygen 2 l/min etCO2 Nasal cannula was administered by Jonah Mckeon RN; used for procedure; Verbal order read back and verified. 8:30:48 Lidocaine 2% 20ml vial added to field was administered by Jassi Pederson MD; for local anesthetic; Verbal order read back and verified. 8:30:56 Heparin Flush Bag (1000units/500ml NS) 2 bags added to field was administered by Jassi Pederson MD; used for procedure; Verbal order read back and verified. 8:31:03 0.9% NaCl 100 ml/hr I.V. was administered by Jonah Mckeon RN; Per physician; Verbal order read back and verified. 8:31:23 Vital chart was started 8:35:13 Baseline sample Acquired. 8:35:17 Full Disclosure recording started 8:35:18 Pre-procedure instructions explained to patient. 8:35:22 Family in waiting room. 8:35:24 Patient NPO since Midnight. 8:35:29 Is the patient allergic to Iodine/contrast media? No. 8:35:31 Is patient on blood thinner?No 8:35:35 Patient diabetic? No. 8:35:52 Previous problem with sedation/anesthesia? Yes nausea 8:41:23 Snore? Yes 8:41:25 Sleep apnea? No 8:41:33 Patient pain scale 0/10 ?. 8:41:45 IV patent on arrival in left forearm with 0.9% NaCl at [facility]. 8:45:55 Stress Test: yes; abnormal anterior, inferior 8:46:00 Left groin area was prepped with chlora-prep and draped in sterile fashion 8:46:02 Alarms reviewed by Casandra N. 8:46:02 Sharps counted by scrub and verified by R.N. 8:46:07 Physician arrived 8:46:08 --------ALL STOP TIME OUT------ 8:46:08 Final Timeout: patient, procedure, and site verified with staff and physician. All members of the team are in agreement. 8:46:11 Bilateral groins site verified by team. 8:46:19 Versed 1 mg I.V. was administered by Jonah Mckeon RN; for sedation; Verbal order read back and verified. 8:46:24 Fentanyl 50 mcg I.V. was administered by Jonah Mckeon RN; for sedation; Verbal order read back and verified. 8:46:25 Fire Safety Assessment: A--An alcohol-based skin anteseptic being used preoperatively., C--Open oxygen or nitrous oxide is being used., D--An ESU, laser, or fiber-optic light is being used. 8:46:28 Physical assessment completed. ASA score P 3 - A patient with severe systemic disease as per Jassi Pederson MD. 8:46:32 2) 60-89 Mildly reduced kidney function, and other findings (as for stage 1) point to kidney disease. 8:46:36 Maximum allowable contrast dose (3.7 X eGFR X 0.75)191 ml. 8:46:41 Sedation plan: IV Moderate Sedation Medication:Versed, Fentanyl 8:46:45 Use device set Femoral Dx 8:46:48 Procedure started. 8:47:35 ACIST Syringe (26942) opened to sterile field. 8:47:35 Bag Decanter () opened to sterile field. 8:47:36 Medline Cath Pack ([id number]) opened to sterile field. 8:47:38 ACIST Hand Control (97836) opened to sterile field. 8:47:39 ACIST Manifold (46897) opened to sterile field. 8:47:40 Tegaderm 4 x 4 (1626W) opened to sterile field. 8:47:50 SHEATH 5FR Bennett ([id number]) opened to sterile field. 8:47:52 EMERALD Guide Wire (717-940) opened to sterile field. 8:48:01 Local anesthetic to left femerol artery with Lidocaine 2% by Jassi Pederson MD.INITIAL ACCESS ONLY 8:49:06 A 5 Fr sheath was inserted into the Left Femoral artery 8:49:35 Versed 1 mg I.V. was administered by Jonah Mckeon RN; for sedation; Verbal order read back and verified. 8:49:39 Fentanyl 50 mcg I.V. was administered by Jonah Mckeon RN; for sedation; Verbal order read back and verified. 8:51:01 SHEATH 5FR Bennett ([id number]) opened to sterile field. 8:51:41 A 5 Fr sheath was inserted into the Left Femoral vein 8:51:44 Fentanyl 50 mcg I.V. was administered by Jonah Mckeon RN; for sedation; Verbal order read back and verified. 8:52:04 WHOLEY 300cm 0.035 wire ([id number]) opened to sterile field. 8:52:20 Zero performed for pressure channel P1 8:53:21 Versed 1 mg I.V. was administered by Jonah Mckeon RN; for sedation; Verbal order read back and verified. 8:53:26 Versed 1 mg I.V. was administered by Jonah Mckeon RN; for sedation; Verbal order read back and verified. 8:53:57 wholey wire advanced through femoral artery 8:56:00 A DIAGNOSTIC 3DRC 5Fr catheter ([id number]) was advanced over the wire and used for .used for support through torturous LFA 8:56:55 RCA angiography performed. 8:56:58 Catheter removed. 8:57:25 A DIAGNOSTIC JL 4.0 5Fr catheter ([id number]) was advanced over the wire and used for Procedure. 8:57:32 LCA angiography performed. 8:58:45 Catheter removed. 8:58:58 A DIAGNOSTIC AR1 MOD 5Fr catheter ([id number]) was advanced over the wire and used for Procedure. 8:59:52 SVG to RCA angiography performed. 9:02:33 Catheter removed. 9:04:19 A DIAGNOSTIC AR2 MOD 5 Fr catheter ([id number]) was advanced over the wire and used for Procedure. 9:04:27 SVG to Circ angiography performed. 9:04:33 Catheter removed. 9:05:23 A DIAGNOSTIC IMT 5Fr Catheter ([id number]) was advanced over the wire and used for Procedure. 9:05:38 CABALLERO angiography performed. 9:06:16 CABALLERO to LAD angiography performed. 9:08:54 Catheter removed. 9:09:05 A DIAGNOSTIC Pigtail 5Fr catheter ([id number]) was advanced over the wire and used for Ventriculography. 9:10:15 Aortic Root visualized 9:12:02 Abdominal Aortagram was performed. 9:12:49 Fentanyl 50 mcg I.V. was administered by Jonah Mckeon RN; for sedation; Verbal order read back and verified. 9:13:44 Procedure type changed to Cath procedure, Diagnostic procedure, LHC, Coronaries w/Grafts, Aortic Root Angiography, Sedation Charges, Moderate Sedation 25-39 minutes, Peripheral Cath Diagnostic Procedure, Abd/Extremity, Aortagram 9:14:02 Sheath removed intact; hemostasis achieved with Manual Compression to the Left Femoral vein. 9:14:08 Sheath removed intact; hemostasis achieved with Exoseal to the Left Femoral artery. 9:14:37 Procedure ended.(Physican Out) 9:14:49 Fluoroscopy time 09.40 minutes. 9:14:54 Fluoroscopy dose: 994 mGy 9:14:54 Flurop Dose total: 994 9:15:01 Dose Area Product 05105 mGy/cm. 9:15:05 Contrast amount:Isovue 300 104ml. 9:15:09 Maximum allowable dose exceeded? No. 9:15:12 Sharps counted by scrub and verified by R.N. 9:15:21 Post-op/insertion site Left Femoral artery dressed using a 4 x 4 and Tegaderm. 9:15:23 Post Procedure Pulses reassessed and unchanged 9:15:31 Post-procedure physical assessment completed. ASA score P 3 - A patient with severe systemic disease as per Jassi Pederson MD. 9:15:35 Post procedure rhythm: unchanged. 9:15:40 Estimated blood loss: 10 ml 9:15:44 Post procedure instruction explained to patient.Patient verbalizes understanding. 9:15:54 Procedure and supply charges have been captured, reviewed, submitted and are correct. 9:19:11 Procedure Complication : No complications 9:19:14 Vital chart was stopped 9:19:27 [facility] Findings: ANAM- MD will discuss options w/ pt 9:19:29 Operative report dictated upon procedure completion. 9:19:30 See physician's report for complete and final results. 9:19:33 Report given to Pre/Post Procedure Room. 9:19:36 Patient transfered to Pre/Post Procedure Room with Stretcher. 9:19:40 Procedure ended. 9:19:40 Full Disclosure recording stopped 9:19:43 End room use (Document Last) Device Usage Item Name Manufacture Quantity Catalog Number Hospital Part Current Minim al Lot# / Charge Number Stock Stock Serial# Code ACIST Acist 1 [id number] 095669 098301 266690 20 Syringe Medical (65198) Systems Inc Bag Microtek 1 291179 34849 142032 5 Decanter Medical Inc. () Medline Medline 1 [id number] [id number] 83808 210005 5 Cath Pack ([id number]) ACIST Hand Acist 1 16926 134572 109553 392158 5 Control Medical (42734) Systems Inc ACIST Acist 1 99600 847784 125322 798751 5 Manifold Medical (88833) Systems Inc Tegaderm 4 3M 1 1626W 438420 714104 203014 5 x 4 (1626W) SHEATH 5FR Terumo 2 [id number] 656802 604621 158105 5 Bennett (TIO231) EMERALD Cardinal 1 502-455 336564 927069 417069 5 Guide Wire Health (502-455) WHOLE Automation Alleytronic 1 [id number] 320545 634211 386941 3 300cm 0.035 wire ([id number]) DIAGNOSTIC Cardinal 1 [id number] 401757 550749 116994 9 3DRC 5Fr Health catheter (424118P) DIAGNOSTIC Cardinal 1 077758T 437956 886668 038006 10 JL 4.0 5Fr Health catheter (879530S) DIAGNOSTIC Cardinal 1 [id number] 235967 760086 704682 15 AR1 MOD 5Fr Health catheter (198480Y) DIAGNOSTIC Cardinal 1 [id number] 650450 544738 023553 20 AR2 MOD 5 Health Fr catheter (539369R) DIAGNOSTIC Townsend 1 [id number] 753802 877312 42184 5 IMT 5Fr Scientific Catheter ([id number]) DIAGNOSTIC Cardinal 1 706223Y 182163 982195 714434 5 Pigtail 5Fr Health catheter (065594Q) Signature Audit Kingsley Stage Time Signature Unsigned Intra-Procedure 11/22/2020 Beatriz Ontiveros 9:22:46 AM RT(R) Intra-Procedure 11/22/2020 Jonah Mckeon RN 9:23:23 AM Intra-Procedure 11/22/2020 Jassi Pederson MD 9:23:44 AM [place] [address] [facility] [place] [address]
[2020-11-22] MEDS ORDERED: OMEPRAZOLE20 M1 PO (07:23)
[2020-11-22] MEDS ORDERED: LISINOPRIL20 MG PO (07:23)
[2020-11-22 07:38] VITALS: BP 132/70; Ht 180.3 cm; Wt 105.4 kg
[2020-11-22 07:42] LABS: BASOPHILS 0.6 % (0-2); EOSINOPHILS 2.1 % (0-7); HEMATOCRIT 36.1 % (42.0-54.0); HEMOGLOBIN 10.9 g/dL (13.5-17.5); IMMATURE GRANULOCYTES 0.2 % (0-5); LYMPHOCYTE ABS# 2.42 10x3/uL (1.32-3.57); LYMPHOCYTES 37.1 % (15-50); MCH 21.9 pg (26.0-34.0); MCHC 30.2 g/dL (31.0-37.0); MCV 72.5 fL (80.0-100.0); MEAN PLATELET VOLUME 9.4 fL (7.4-10.4); MONOCYTES 9.4 % (2-11); NEUTROPHILS 50.6 % (40-80); PLATELET COUNT 244 10x3/uL (130-400); RBC 4.98 10x6/uL (4.20-6.10); RDW 17.6 % (11.5-14.5); WBC 6.5 10x3/uL (4.8-10.8)
[2020-11-22 07:55] LABS: ANION GAP 11.6 mmol/L (8-16); CALCIUM 9.8 mg/dL (8.5-10.1); CARBON DIOXIDE 26.8 mmol/L (21.0-32.0); CHOL - HDL RATIO 4.7 ratio (2.3-4.9); CREATININE - SERUM 1.1 mg/dL (0.6-1.3); LDL-HDL RATIO 3.1 ratio (1.5-3.5); POTASSIUM - SERUM 4.4 mmol/L (3.5-5.1)
--- NOTE | 2020-11-22 09:38 | NUR ---
PT REC'D TO CATH RECOVERY ROOM 12. MONITORS ESTAB. AT BS. SEE CUTTER OPERATOR FLOWSHEETS. ALARMS ON AND C/L IN REACH.
--- NOTE | 2020-11-22 09:50 | NUR ---
L GROIN SITE SOFT, NO S/S BLEEDING OR SWELLING. PULSES PALP. L LEG/FOOT WARM WITH PALP PULSES AND BRISK CAP REFILL. VSS. PT DENIES PAIN OR NEEDS. ALARMS ON AND C/L IN REACH.
--- NOTE | 2020-11-22 10:35 | NUR ---
PT VISITING WITH , DENIES PAIN. L GROIN SITE SOFT, NO S/S BLEEDING OR HEMATOMA. PULSES PALP. L LEG/FOOT WARM. ALARMS ON AND C/L IN REACH.
--- NOTE | 2020-11-22 10:40 | NUR ---
L GROIN SITE SOFT, NO S/S BLEEDING OR HEMATOMA. PULSES PALP. HOB ELEVATED, SANDWICH TRAY AND COFFEE PROVIDED. ASSISTING.
--- NOTE | 2020-11-22 10:49 | NUR ---
CM - BRIEF PERIOD OF UCAF RATE UP TO 153 NOTED, THEN BACK TO SR/SINUS ARRYTHMIA. PT ASYMPTOMATIC. WILL CONT CLOSE MONITORING.
--- NOTE | 2020-11-22 11:17 | NUR ---
DR. RUBY NOTIFIED OF ARRYTHMIA, EKG OBTAINED, NO OTHER ORDERS AT THIS TIME. VSS. L GROIN SITE SOFT, C/D/I, PULSES PALP.
--- NOTE | 2020-11-22 11:22 | NUR ---
PT ATE ALL OF SANDWICH, NO N/V. L GROIN SITE SOFT, NO S/S BLEEDING OR HEMATOMA. L LEG/FOOT WARM WITH PALP PULSES. PT DENIES PAIN OR NEEDS. ALARMS ON AND C/L IN REACH.
--- NOTE | 2020-11-22 11:40 | NUR ---
DR. RUBY IN SPEAK WITH PT AND HIS RE: TEST RESULTS. PLAN FOR DR. CESPEDES CONSULT. NO OTHER QUESTIONS AT THIS TIME.
--- NOTE | 2020-11-22 11:54 | NUR ---
ALL DISCHARGE TEACHING DONE WITH PT AND , INCLUDING RESTRICTIONS, MEDS AND F/U APPT, BOTH VERBALIZE UNDERSTANDING. PIV D/C'D INTACT, DSG APPLIED. PT ALLOWED UP TO GET DRESSED AND USE THE BATHROOM INDEPENDENTLY.
--- NOTE | 2020-11-22 12:00 | NUR ---
PT D/C'D VIA WC TO PRIVATE VEHICLE WITH ALL PAPERWORK AND BELONGINGS.
== END 2020-11-22 12:00 | disposition home or self-care (01) ==
LOC: D.CATH 07:01
PROVIDERS: ATTEND Internal Medicine Cardiovascular Disease
DX: I25.119 Atherosclerotic heart disease of native coronary artery with unspecified angina pectoris (principal); R94.39 Abnormal result of other cardiovascular function study; R06.00 Dyspnea, unspecified; I10 Essential (primary) hypertension; R06.02 Shortness of breath; I35.0 Nonrheumatic aortic (valve) stenosis